=== PATIENT | female | born 1995 | race Caucasian/White ===

== ENCOUNTER 2018-04-21 12:31 | Emergency (ER) | payer MEDICAID, OTHER ==
[2018-04-21 12:53] VITALS: BP 112/75
--- NOTE | 2018-04-21 13:23 | EDM.PDOC ---
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 Her last meds. Was in February she states she took a test is positive but notes that her urine is very concentrated and is concerned she might have a bladder infection. She denies any abdominal pain, vaginal bleeding or vaginal discharge. She has had some nausea and vomiting. Review of systems: As per history of present illness and below otherwise all systems reviewed and negative. Past medical history: As per history of present illness and as reviewed below otherwise noncontributory. Surgical history: As per history of present illness and as reviewed below otherwise noncontributory. Social history: No reported history of drug or alcohol abuse. Family history: As per history of present illness and as reviewed below otherwise noncontributory. Physical exam: General: Well developed, well nourished in NAD HEENT: Atraumatic, normocephalic, pupils reactive, negative for conjunctival pallor or scleral icterus, mucous membranes moist, throat clear, neck supple, nontender, trachea midline. Lungs: Clear to auscultation, breath sounds equal bilaterally, chest nontender. Heart: S1S2, regular, negative for clicks, rubs, or JVD. Abdomen: Soft, nondistended, nontender. Negative for masses or hepatosplenomegaly. Negative for costovertebral tenderness. Pelvis: Stable nontender. Genitourinary: Deferred. Rectal: Deferred. Extremities: Atraumatic, negative for cords or calf pain. Neurovascular unremarkable. Neuro: Awake, alert, oriented. Cranial nerves II through XII unremarkable. Cerebellum unremarkable. Motor and sensory unremarkable throughout. Exam nonfocal. Diagnostics: []UA negative patient is afebrile here although she states she feels a fever, hCG positive Therapeutics: [] Impression: [] Plan: []Follow-up [facility] clinic Definitive disposition and diagnosis as appropriate pending reevaluation and review of above. - Related Data Allergies Allergy/AdvReac Type Severity Reaction Status Date / Time No Known Allergies Allergy Verified 04/21/18 12:41 Home Meds: Home Meds . 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: Psychiatric History: Reports: Anxiety, Depression Endocrine/Metabolic History: Reports: Diabetes, Gestational Social & Family History - Family History Family Medical History: Noncontributory Respiratory: Reports: Asthma Musculoskeletal: Reports: Arthritis Neurological: Reports: Alzheimers Disease Psychiatric: Reports: ADHD Endocrine/Metabolic: Reports: Diabetes, Type I, Diabetes, type II - Tobacco Use Smoking Status *Q: Never Smoker - Recreational Drug Use Recreational Drug Use: No ED ROS GENERAL - Review of Systems Review Of Systems: See Below (See history of present illness) ED EXAM - Physical Exam Exam: See Below (History of present illness) Course - Vital Signs Last Recorded V/S: Last Vital Signs Temp 97.9 F 04/21/18 12:42 Pulse 64 04/21/18 12:42 Resp 18 04/21/18 12:42 BP 112/75 04/21/18 12:42 Pulse Ox 98 04/21/18 12:42 - Orders/Labs/Meds Orders: Active Orders 24 hr Category Date Time Status HCG QUALITATIVE,URINE [URCHEM] Stat Lab 04/21/18 12:36 Ordered UA W/MICROSCOPIC [URIN] Stat Lab 04/21/18 12:36 Ordered Labs: Laboratory Tests 04/21/18 04/21/18 Range/Units 12:36 12:36 Urine Color YELLOW Urine Appearance CLEAR Urine pH 6.0 (5.0-8.0) Ur Specific [place] 1.010 (1.001-1.035) Urine Protein NEGATIVE (NEGATIVE) mg/dL Urine Glucose (UA) NEGATIVE (NEGATIVE) mg/dL Urine Ketones NEGATIVE (NEGATIVE) mg/dL Urine Occult Blood NEGATIVE (NEGATIVE) Urine Nitrite NEGATIVE (NEGATIVE) Urine Bilirubin NEGATIVE (NEGATIVE) Urine Urobilinogen 0.2 (<2.0) EU/dL Ur Leukocyte Esterase NEGATIVE (NEGATIVE) Urine RBC NONE SEEN (0-2/HPF) Urine WBC 0-1 (0-5/HPF) Ur Epithelial Cells OCCASIONAL (NONE-FEW) Urine Bacteria NOT SEEN (NEGATIVE) Urine HCG, Qual POSITIVE (NEGATIVE) Departure - Departure Time of Disposition: 13:20 Disposition: Home, Self-Care 01 Condition: Good Clinical Impression: - Discharge Information Referrals: PCP,None [Primary Care Provider] - Additional Instructions: The following information is given to patients seen in the emergency department who are being discharged to home. This information is to outline your options for follow-up care. We provide all patients seen in our emergency department with a follow-up referral. The need for follow-up, as well as the timing and circumstances, are variable depending upon the specifics of your emergency department visit. If you don't have a primary care physician on staff, we will provide you with a referral. We always advise you to contact your personal physician following an emergency department visit to inform them of the circumstance of the visit and for follow-up with them and/or the need for any referrals to a consulting specialist. The emergency department will also refer you to a specialist when appropriate. This referral assures that you have the opportunity for follow-up care with a specialist. All of these measure are taken in an effort to provide you with optimal care, which includes your follow-up. Under all circumstances we always encourage you to contact your private physician who remains a resource for coordinating your care. When calling for follow-up care, please make the office aware that this follow-up is from your recent emergency room visit. If for any reason you are refused follow-up, please contact the [facility] Emergency Department at and asked to speak to the emergency department charge nurse. [facility] Primary Care - Women's Health [address] [place] [id number] - My Orders Last 24 Hours: My Active Orders 04/21/18 12:36 HCG QUALITATIVE,URINE [URCHEM] Stat UA W/MICROSCOPIC [URIN] Stat - Assessment/Plan Last 24 Hours: My Active Orders 04/21/18 12:36 HCG QUALITATIVE,URINE [URCHEM] Stat UA W/MICROSCOPIC [URIN] Stat
== END 2018-04-21 13:25 | disposition home or self-care (01) ==
LOC: MW.ED 12:31
DX: O99.89 Other specified diseases and conditions complicating pregnancy, childbirth and the puerperium (principal); R50.9 Fever, unspecified
CPT/HCPCS: 81001; 81025; 99283

== ENCOUNTER 2018-06-18 16:49 | Emergency (ER) | payer MEDICAID ==
--- NOTE | 2018-06-18 17:20 | EDM.PDOC ---
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 The patient says she had no trauma and has not had recent sexual intercourse and has had no urinary complaints frequency urgency or hematuria and no flank pain no upper abdominal pain no vomiting fevers chills or diarrhea. She describes the pain as localized very low in the right lower abdomen/pelvis and in the groin area and she says that it shoots to her right leg. It is achy in character and seems to be worse when she stands for long periods of time and when she walks area she has not noticed any weakness in the leg or swelling of the leg. She has been eating and drinking normally today without anorexia. Is not had any fevers. She also has not had any vaginal discharge as well as no vaginal bleeding. The patient has seen Debbi Westbrook in the clinic just last week on June 11 and had a CBC and other labs as well as an ABO Rh which was O+ Review of systems: As per history of present illness and below otherwise all systems reviewed and negative. Past medical history: As per history of present illness and as reviewed below otherwise noncontributory. Surgical history: As per history of present illness and as reviewed below otherwise noncontributory. Social history: No reported history of drug or alcohol abuse. Family history: As per history of present illness and as reviewed below otherwise noncontributory. Physical exam: General: Well-developed well-nourished female who is nontoxic and moves easily in the ED without distress. Vital signs are noted by me. HEENT: Atraumatic, normocephalic, negative for conjunctival pallor or scleral icterus, mucous membranes moist, throat clear, neck supple, nontender, trachea midline. Lungs: Clear to auscultation, breath sounds equal bilaterally, chest nontender. Heart: S1S2, regular rate and rhythm no overt murmurs Abdomen: Soft, nondistended uterus is gravid with the fundus below the umbilicus consistent with her dates and the uterus itself is not tender. There is mild tenderness with palpation in the deep right lower quadrant just above the inguinal ligament and there is no tenderness extending below the inguinal ligament or in the femoral triangle. The tenderness does extend slightly to the suprapubic area and there is no rebound or guarding and there is no tenderness with obturator sign or Rovsing sign. Negative for masses or hepatosplenomegaly. Negative for costovertebral tenderness. Pelvis: Stable nontender. Genitourinary: Deferred. Rectal: Deferred. Extremities: Atraumatic, negative for cords or calf pain. Neurovascular unremarkable. Neuro: Awake, alert, oriented. Cranial nerves II through XII unremarkable. Cerebellum unremarkable. Motor and sensory unremarkable throughout. Exam nonfocal. Diagnostics: CBC CMP UA urine culture if indicated serum quantitative hCG pelvic ultrasound abdominal ultrasound limited Therapeutics: Case was discussed with Debbi Westbrook the patient's provider in the clinic. She would like to follow her in the clinic tomorrow morning and agrees with no further evaluation at this time. Patient states the pain is just crampy it is not sharp and she is hungry and wants to eat dinner. I've advised her about strict follow-up and calling the clinic at 8 AM tomorrow to be seen by Debbi in the clinic tomorrow for close follow-up. She is aware of all testing results and care plan for home Impression: Right lower pelvic pain, rule out round ligament pain Definitive disposition and diagnosis as appropriate pending reevaluation and review of above. Right Abdominal Pain Score (Numeric/FACES): 6 - Related Data Allergies Allergy/AdvReac Type Severity Reaction Status Date / Time No Known Allergies Allergy Verified 06/18/18 16:51 Home Meds: Home Meds . 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: Neurological History: Reports: None Psychiatric History: Reports: Anxiety, Depression Endocrine/Metabolic History: Reports: Diabetes, Gestational Dermatologic History: Reports: None - Infectious Disease History Infectious Disease History: Reports: None Social & Family History - Family History Family Medical History: Noncontributory Respiratory: Reports: Asthma Musculoskeletal: Reports: Arthritis Neurological: Reports: Alzheimers Disease Psychiatric: Reports: ADHD Endocrine/Metabolic: Reports: Diabetes, Type I, Diabetes, type II - Tobacco Use Smoking Status *Q: Never Smoker - Caffeine Use Caffeine Use: Reports: Coffee - Recreational Drug Use Recreational Drug Use: No ED ROS GENERAL - Review of Systems Review Of Systems: ROS reveals no pertinent complaints other than HPI. ED EXAM, GENERAL - Physical Exam Exam: See Below (See dictation) Course - Vital Signs Last Recorded V/S: Last Vital Signs Temp 36.3 C 06/18/18 16:52 Pulse 74 06/18/18 16:52 Resp 15 06/18/18 16:52 BP 100/59 L 06/18/18 16:52 Pulse Ox 98 06/18/18 16:52 - Orders/Labs/Meds Orders: Active Orders 24 hr Category Date Time Status Abdomen Ltd [US] Stat Exams 06/18/18 17:18 Ordered OB 2 Or 3 Tri Sgl 1st Gest [US] Stat Exams 06/18/18 17:14 Stop Req OB Ltd 1 or More Fetus [US] Stat Exams 06/18/18 17:18 Ordered UA W/MICROSCOPIC [URIN] Stat Lab 06/18/18 17:16 Ordered Labs: Laboratory Tests 06/18/18 06/18/18 06/18/18 Range/Units 17:16 17:24 17:24 WBC 8.21 (4.0-11.0) K/uL RBC 3.87 L (4.30-5.90) M/uL Hgb 10.3 L (12.0-16.0) g/dL Hct 31.7 L (36.0-46.0) % MCV 81.9 (80.0-98.0) fL MCH 26.6 L (27.0-32.0) pg MCHC 32.5 (31.0-37.0) g/dL RDW Std Deviation 43.6 (28.0-62.0) fl RDW Coeff of Gerardo 15 (11.0-15.0) % Plt Count 220 (150-400) K/uL MPV 10.20 (7.40-12.00) fL Neut % (Auto) 66.1 (48.0-80.0) % Lymph % (Auto) 24.2 (16.0-40.0) % [place]olls % (Auto) 8.9 (0.0-15.0) % Eos % (Auto) 0.7 (0.0-7.0) % Baso % (Auto) 0.1 (0.0-1.5) % Neut # (Auto) 5.4 (1.4-5.7) K/uL Lymph # (Auto) 2.0 (0.6-2.4) K/uL [place] # (Auto) 0.7 (0.0-0.8) K/uL Eos # (Auto) 0.1 (0.0-0.7) K/uL Baso # (Auto) 0.0 (0.0-0.1) K/uL Nucleated RBC % 0.0 /100WBC Nucleated RBCs # 0 K/uL Sodium 135 L (136-145) mmol/L Potassium 3.5 (3.5-5.1) mmol/L Chloride 103 (98-107) mmol/L Carbon Dioxide 24.5 (21.0-32.0) mmol/L BUN 10 (7.0-18.0) mg/dL Creatinine 0.4 L (0.6-1.0) mg/dL Est Cr Clr Drug Dosing 155.77 mL/min Estimated GFR (MDRD) > 60.0 ml/min Glucose 83 (74-106) mg/dL Calcium 8.7 (8.5-10.1) mg/dL Total Bilirubin 0.1 L (0.2-1.0) mg/dL AST 15 (15-37) IU/L ALT 15 (14-63) IU/L Alkaline Phosphatase 51 (46-116) U/L Total Protein 7.1 (6.4-8.2) g/dL Albumin 3.2 L (3.4-5.0) g/dL Globulin 3.9 H (2.0-3.5) g/dL Albumin/Globulin Ratio 0.8 L (1.3-2.8) HCG, Quant 05683.0 mIU/mL Urine Color YELLOW Urine Appearance CLEAR Urine pH 6.0 (5.0-8.0) Ur Specific [place] 1.010 (1.001-1.035) Urine Protein NEGATIVE (NEGATIVE) mg/dL Urine Glucose (UA) NEGATIVE (NEGATIVE) mg/dL Urine Ketones NEGATIVE (NEGATIVE) mg/dL Urine Occult Blood NEGATIVE (NEGATIVE) Urine Nitrite NEGATIVE (NEGATIVE) Urine Bilirubin NEGATIVE (NEGATIVE) Urine Urobilinogen 0.2 (<2.0) EU/dL Ur Leukocyte Esterase NEGATIVE (NEGATIVE) Urine RBC 0-1 (0-2/HPF) Urine WBC 0-1 (0-5/HPF) Ur Epithelial Cells RARE (NONE-FEW) Urine Bacteria RARE (NEGATIVE) Departure - Departure Time of Disposition: 18:29 Disposition: Home, Self-Care 01 Condition: Good Clinical Impression: Pelvic pain - Discharge Information Forms: ED Department Discharge Additional Instructions: The following information is given to patients seen in the emergency department who are being discharged to home. This information is to outline your options for follow-up care. We provide all patients seen in our emergency department with a follow-up referral. The need for follow-up, as well as the timing and circumstances, are variable depending upon the specifics of your emergency department visit. If you don't have a primary care physician on staff, we will provide you with a referral. We always advise you to contact your personal physician following an emergency department visit to inform them of the circumstance of the visit and for follow-up with them and/or the need for any referrals to a consulting specialist. The emergency department will also refer you to a specialist when appropriate. This referral assures that you have the opportunity for followup care with a specialist. All of these measure are taken in an effort to provide you with optimal care, which includes your followup. Under all circumstances we always encourage you to contact your private physician who remains a resource for coordinating your care. When calling for followup care, please make the office aware that this follow-up is from your recent emergency room visit. If for any reason you are refused follow-up, please contact the [facility] emergency department at and ask to speak to the emergency department charge nurse. [facility] Primary care-Women's Health [address]. [address] [address] Please call the clinic tomorrow at 8 AM to be seen by Debbi Westbrook tomorrow in the clinic. Strict pelvic rest and push hydration. Use [id number] Tylenol for pain as you choose. Return to ER as needed and as we discussed - My Orders Last 24 Hours: My Active Orders 06/18/18 17:14 OB 2 Or 3 Tri Sgl 1st Gest [US] Stat 06/18/18 17:16 UA W/MICROSCOPIC [URIN] Stat 06/18/18 17:18 Abdomen Ltd [US] Stat OB Ltd 1 or More Fetus [US] Stat - Assessment/Plan Last 24 Hours: My Active Orders 06/18/18 17:14 OB 2 Or 3 Tri Sgl 1st Gest [US] Stat 06/18/18 17:16 UA W/MICROSCOPIC [URIN] Stat 06/18/18 17:18 Abdomen Ltd [US] Stat OB Ltd 1 or More Fetus [US] Stat
[2018-06-18 18:14] LABS: CHLORIDE,CL 103 mmol/L (98-107); SODIUM,NA 135 mmol/L (136-145)
[2018-06-18 18:41] VITALS: BP 110/72
--- NOTE | 2018-06-18 18:41 | US ---
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 Site : 1995 Study: US OB Pelvis [id number]/22/2018 5:58:47 PM Ordering Physician: Penny Pereira Final Report: INDICATION: Pain. COMPARISON: None. FINDINGS: Single live intrauterine gestation is noted with cardiac activity at 184 beats per minute. The placenta is anterior and does not overlie the cervical os. Placental lakes are noted. The cervix measures 4.1 cm. Gestational age based on a biparietal diameter 3.5 cm, head circumference of 12.6 cm, abdominal circumference of 10.9 cm and femur length of 2.1 cm is 16 weeks 5 days for an estimated date of delivery of 11/28/2018. IMPRESSION: 1. Single live intrauterine gestation with ultrasound age of 16 weeks 5 days. 2. Placental lakes noted. Dictated by Amanda Navarro MD @ Jun 18 2018 6:05PM (Electronic Signature) Report Signed by Proxy. MILAD
--- NOTE | 2018-06-18 18:43 | US ---
EXAM DATE: 06/18/18 PATIENT'S AGE: 23 Patient: CHASE PARDO Facility: [place], [place] Site . Site : 1995 Study: US Abdomen [id number] 6:00:02 PM Ordering Physician: Penny Pereira Final Report: Indication: Pain Technique: Multiple transabdominal sonographic images of the right lower quadrant Comparison: None available Findings: The appendix is not visualized. No significant free fluid or discrete collection are seen. Impression: The appendix is not seen. Please note that sonographic nonvisualization of the appendix does not exclude appendicitis. If there is high clinical concern, further evaluation with noncontrast MRI should be considered. Dictated by Fernie Parker MD @ 06/18/2018 6:08:23 PM Dictated by: Fernie Parker MD @ 06/18/2018 18:08:27 (Electronic Signature) Report Signed by Proxy. [email or web address]
== END 2018-06-18 18:39 | disposition home or self-care (01) ==
LOC: MW.ED 16:49
DX: O99.89 Other specified diseases and conditions complicating pregnancy, childbirth and the puerperium (principal); R10.2 Pelvic and perineal pain; Z3A.16 16 weeks gestation of pregnancy
CPT/HCPCS: 36415; 76705; 76705-26; 76815; 76815-26; 80053; 81001; 84702; 85025; 99284-25

== ENCOUNTER 2018-12-08 07:28 | Inpatient (IN) | payer MEDICAID ==
[2018-12-08] MEDS ORDERED: Methylergonovine 0.2 MG/1 ML Amp IM PRN (07:58)
[2018-12-08] MEDS ORDERED: Water For Irrigation,Sterile 1,000 ML Container IRR PRN (07:58)
[2018-12-08] MEDS ORDERED: Tranexamic Acid 1,000 MG in Sodium Chloride 0.9% 100 ML IV PRN (07:58)
[2018-12-08] MEDS ORDERED: Sodium Chloride 0.9% 2.5 ML Syringe FLUSH PRN (07:58)
[2018-12-08] MEDS ORDERED: Carboprost Tromethamine 250 MCG/1 ML Amp IM PRN (07:58)
[2018-12-08] MEDS ORDERED: Sodium Chloride 0.9% 10 ML Syringe FLUSH PRN (07:58)
[2018-12-08] MEDS ORDERED: Terbutaline 1 MG/ML SDV SUBCUT PRN (07:58)
[2018-12-08] MEDS ORDERED: Misoprostol 25 MCG (1/4 of 100 MCG) Tab VAG PRN ×2 (07:58)
[2018-12-08] MEDS ORDERED: Nalbuphine 10 MG/1 ML Vial IVPUSH PRN (07:58)
[2018-12-08] MEDS ORDERED: Misoprostol 25 MCG (1/4 of 100 MCG) Tab PO PRN ×2 (07:58)
[2018-12-08] MEDS ORDERED: Lidocaine 1% 50 ML MDV INJECT PRN (07:58)
[2018-12-08] MEDS ORDERED: Misoprostol 200 MCG Tab PO PRN (07:58)
[2018-12-08] MEDS ORDERED: Oxytocin/0.9 % Sodium Chloride 30 UNIT/500 ML BAG IV SCH ×2 (08:00)
[2018-12-08] MEDS: Lactated Ringers 1,000 ML IV SCH ×3 (08:30→16:18)
--- NOTE | 2018-12-08 13:30 | PCM.LDHP ---
L&D History of Present Illness - General Date of Service: 12/08/18 Admit Problem/Dx: Patient Status Order with Admit Dx/Problem 12/08/18 07:59 Patient Status [ADT] Routine Admission Diagnosis/Problem Admission Diagnosis/Problem 12/08/18 13:25 23 yo EDC 12/05/2018 40 3/7wks, O+, RI, GBSneg, H&H 808 / 28.8. IOL post dates Source of Information: Patient History Limitations: Reports: No Limitations - History of Present Illness Improves with: Reports: None Worsens with: Reports: None Associated Symptoms: Reports: N - Related Data Allergies/Adverse Reactions: Allergies Allergy/AdvReac Type Severity Reaction Status Date / Time No Known Allergies Allergy Verified 12/08/18 07:57 Home Medications: Home Meds . [No Known Home Meds] 04/21/18 [History] Past Medical History - Past Health History Medical/Surgical History: Denies Medical/Surgical History HEENT History: Reports: Other (See Below) Other HEENT History: Pt wear eye glasses Respiratory History: Reports: None Gastrointestinal History: Reports: None Genitourinary History: Reports: None WRAPPER STEMMER HAND History: Reports: Musculoskeletal History: Reports: None Neurological History: Reports: None Psychiatric History: Reports: Anxiety, Depression Endocrine/Metabolic History: Reports: Diabetes, Gestational Other Endocrine/Metabolic History: GDM with first Hematologic History: Reports: None Immunologic History: Reports: None Oncologic (Cancer) History: Reports: None Dermatologic History: Reports: None - Infectious Disease History Infectious Disease History: Reports: None - Past Surgical History Head Surgeries/Procedures: Reports: None HEENT Surgical History: Reports: None GI Surgical History: Reports: None Female Surgical History: Reports: None Musculoskeletal Surgical History: Reports: None Social & Family History - Family History Family Medical History: Noncontributory Respiratory: Reports: Asthma Musculoskeletal: Reports: Arthritis Neurological: Reports: Alzheimers Disease Psychiatric: Reports: ADHD Endocrine/Metabolic: Reports: Diabetes, Type I, Diabetes, type II - Tobacco Use Smoking Status *Q: Former Smoker Years of Tobacco use: 8 Packs/Tins Daily: 0.5 Used Tobacco, but Quit: Yes Month/Year Tobacco Last Used: 02/2018 Second Hand Smoke Exposure: Yes - Caffeine Use Caffeine Use: Reports: Coffee - Recreational Drug Use Recreational Drug Use: No H&P Review of Systems - Review of Systems: Review Of Systems: See Below General: Reports: No Symptoms HEENT: Reports: No Symptoms Pulmonary: Reports: No Symptoms Cardiovascular: Reports: No Symptoms Gastrointestinal: Reports: No Symptoms Genitourinary: Reports: No Symptoms Musculoskeletal: Reports: No Symptoms Skin: Reports: No Symptoms Psychiatric: Reports: No Symptoms Neurological: Reports: No Symptoms Hematologic/Lymphatic: Reports: No Symptoms Immunologic: Reports: No Symptoms L&D Exam - Exam Exam: See Below - Vital Signs Weight: 77.111 kg - OB Specific Contraction Intensity: Mild Movement: Active Heart Tones: Present Heart Rate (FHR) Variability: Moderate (6-25 bmp) Presentation: Vertex - Prieto Score Prieto Score Cervix Position: Posterior Prieto Score Consistency: Soft Prieto Score Effacement: 51-70% Prieto Score Dilation: 3-4 cm Prieto Score Infant's Station: -2 Prieto Score Total: 7 - Exam General: Alert, Oriented HEENT: Hearing Intact Neck: Supple, Trachea Midline Lungs: Clear to Auscultation, Normal Respiratory Effort. No: Decreased Breath Sounds Cardiovascular: Regular Rate, Regular Rhythm, Normal S1, Normal S2. No: Irregular Rhythm Rectal Exam: Deferred Genitourinary: Normal external exam, Normal bimanual exam, Cervical dilitation Back Exam: Normal Inspection, Full Range of Motion Extremities: Normal Inspection, Normal Range of Motion, Non-Tender, No Pedal Edema, Normal Capillary Refill Skin: Warm, Dry, Intact Neurological: Cranial Nerves Intact, Reflexes Equal Bilateral, Strength Equal Bilateral, Normal Gait, Normal Speech, Normal Tone Psychiatric: Alert, Normal Affect, Normal Mood - Patient Data Lab Results Last 24 hrs: Laboratory Results - last 24 hr 12/08/18 12/08/18 Range/Units 08:22 08:22 WBC 7.50 (4.0-11.0) K/uL RBC 3.71 L (4.30-5.90) M/uL Hgb 8.8 L (12.0-16.0) g/dL Hct 28.8 L (36.0-46.0) % MCV 77.6 L (80.0-98.0) fL MCH 23.7 L (27.0-32.0) pg MCHC 30.6 L (31.0-37.0) g/dL RDW Std Deviation 55.6 (28.0-62.0) fl RDW Coeff of Gerardo 19 H (11.0-15.0) % Plt Count 197 (150-400) K/uL MPV 10.30 (7.40-12.00) fL Nucleated RBC % 0.3 /100WBC Nucleated RBCs # 0 K/uL Blood Type O POSITIVE Antibody Screen NEGATIVE Result Diagrams: 12/08/18 08:22 - Problem List (1) Supervision of normal IUP (intrauterine ) in multigravida SNOMED Code(s): 582059124, 104918285, 694586844 ICD Code: Z34.80 - ENCOUNTER FOR SUPRVSN OF NORMAL , UNSP TRIMESTER Status: Acute Priority: High Current Visit: Yes Qualifiers: Trimester: third trimester Qualified Code(s): Z34.83 - Encounter for supervision of other normal , third trimester Problem List Initiated/Reviewed/Updated: Yes Orders Last 24hrs: Active Orders 24 hr Category Date Time Status Patient Status [ADT] Routine ADT 12/08/18 07:59 Active Bedrest Bathroom Privileges [RC] ASDIRECTED Care 12/08/18 07:59 Active Communication Order [RC] ASDIRECTED Care 12/08/18 07:59 Active Communication Order [RC] ASDIRECTED Care 12/08/18 07:59 Active Communication Order [RC] ASDIRECTED Care 12/08/18 07:59 Active May Shower [RC] ASDIRECTED Care 12/08/18 07:59 Active Notify Provider [RC] PRN Care 12/08/18 07:59 Active Notify Provider [RC] PRN Care 12/08/18 07:59 Active Notify Provider [RC] PRN Care 12/08/18 07:59 Active Notify Provider [RC] STAT Care 12/08/18 07:59 Active Oxygen Therapy [RC] ASDIRECTED Care 12/08/18 07:59 Active Up ad Marii [RC] ASDIRECTED Care 12/08/18 07:59 Active Vital Signs [RC] PER UNIT ROUTINE Care 12/08/18 07:59 Active Regular Diet [DIET] Diet 12/08/18 Breakfast Active Carboprost Tromethamine [Hemabate DS] Med 12/08/18 07:58 Active 250 mcg IM ASDIRECTED PRN Lactated Ringers [Ringers, Lactated] 1,000 ml Med 12/08/18 08:00 Active IV ASDIRECTED Lidocaine 1% [Xylocaine 1%] Med 12/08/18 07:58 Active 50 ml INJECT ONETIME PRN Methylergonovine [Methergine] Med 12/08/18 07:58 Active 0.2 mg IM ASDIRECTED PRN Nalbuphine [Nubain] Med 12/08/18 07:58 Active 10 mg IVPUSH Q1H PRN Oxytocin/0.9 % Sodium Chloride [Oxytocin 30 Unit/500 ML Med 12/08/18 08:00 Active -NS] 30 unit in 500 ml IV TITRATE Oxytocin/0.9 % Sodium Chloride [Oxytocin 30 Unit/500 ML Med 12/08/18 08:00 Active -NS] 30 unit in 500 ml IV TITRATE Sodium Chloride 0.9% [Saline Flush] Med 12/08/18 07:58 Active 10 ml FLUSH ASDIRECTED PRN Sodium Chloride 0.9% [Saline Flush] Med 12/08/18 07:58 Active 2.5 ml FLUSH ASDIRECTED PRN Terbutaline [Brethine] Med 12/08/18 07:58 Active 0.25 mg SUBCUT ASDIRECTED PRN Tranexamic Acid [Cyklokapron] 1,000 mg Med 12/08/18 07:58 Active Sodium Chloride 0.9% [Normal Saline] 100 ml IV ONETIME Water For Irrigation,Sterile [Sterile Water for Med 12/08/18 07:58 Active Irrigation] 1,000 ml IRR ASDIRECTED PRN miSOPROStol [Cytotec] Med 12/08/18 07:58 Active 200 mcg PO ONETIME PRN miSOPROStol [Cytotec] Med 12/08/18 07:58 Active 25 mcg PO ONETIME PRN miSOPROStol [Cytotec] Med 12/08/18 07:58 Active 25 mcg PO Q4H PRN miSOPROStol [Cytotec] Med 12/08/18 07:58 Active 25 mcg VAG ONETIME PRN miSOPROStol [Cytotec] Med 12/08/18 07:58 Active 25 mcg VAG Q4H PRN Scalp Electrode [WOMSER] Per Unit Routine Oth 12/08/18 07:59 Ordered Medication Administration Instruction [OM.PC] Q3H Oth 12/08/18 08:00 Ordered Peripheral IV Insertion Adult [OM.PC] Routine Oth 12/08/18 07:59 Ordered Resuscitation Status Routine Resus Stat 12/08/18 07:58 Ordered Medication Orders Carboprost Tromethamine (Hemabate Ds) 250 mcg IM ASDIRECTED PRN PRN Reason: Post Hemorrhage Lactated Ringer's (Ringers, Lactated) 1,000 mls @ 150 mls/hr IV ASDIRECTED RITIKA Last Admin: 12/08/18 08:30 Dose: 150 mls/hr Oxytocin/Sodium Chloride (Oxytocin 30 Unit/500 Ml-Ns) 30 unit in 500 mls @ 2 mls/hr IV TITRATE RITIKA; Protocol Oxytocin/Sodium Chloride (Oxytocin 30 Unit/500 Ml-Ns) 30 unit in 500 mls @ 500 mls/hr IV TITRATE RITIKA Tranexamic Acid 1,000 mg/ (Sodium Chloride) 110 mls @ 660 mls/hr IV ONETIME PRN PRN Reason: Bleeding Lidocaine HCl (Xylocaine 1%) 50 ml INJECT ONETIME PRN PRN Reason: Laceration repair Methylergonovine Maleate (Methergine) 0.2 mg IM ASDIRECTED PRN PRN Reason: Post Hemorrhage Misoprostol (Cytotec) 25 mcg VAG ONETIME PRN PRN Reason: Cervical Ripening Last Admin: 12/08/18 08:53 Dose: 25 mcg Misoprostol (Cytotec) 25 mcg VAG Q4H PRN PRN Reason: Cervical Ripening Misoprostol (Cytotec) 200 mcg PO ONETIME PRN PRN Reason: Post Hemorrhage Misoprostol (Cytotec) 25 mcg PO ONETIME PRN PRN Reason: Cervical Ripening Last Admin: 12/08/18 08:54 Dose: 25 mcg Misoprostol (Cytotec) 25 mcg PO Q4H PRN PRN Reason: Cervical Ripening Nalbuphine HCl (Nubain) 10 mg IVPUSH Q1H PRN PRN Reason: Pain (severe 7-10) Sodium Chloride (Saline Flush) 10 ml FLUSH ASDIRECTED PRN PRN Reason: Keep Vein Open Sodium Chloride (Saline Flush) 2.5 ml FLUSH ASDIRECTED PRN PRN Reason: Keep Vein Open Sterile Water (Sterile Water For Irrigation) 1,000 ml IRR ASDIRECTED PRN PRN Reason: delivery Terbutaline Sulfate (Brethine) 0.25 mg SUBCUT ASDIRECTED PRN PRN Reason: Tacysystole Assessment/Plan Comment:: IOL A: 23 yo EDC 12/05/2018 40 3/7wks, O+, RI, GBSneg, H&H 808 / 28.8. IOL post dates, VE 3-4/70/-2 AROM clear P: admit, cytotec to pitocin, anticipate . Dr Adams updated
[2018-12-08] MEDS ORDERED: Ropivacaine HCl/PF 100 ML ONE (14:15)
[2018-12-08] MEDS ORDERED: Lidocaine HCl/EPINEPHrine 5 ML IJ ONE (14:33)
[2018-12-08] MEDS ORDERED: Acetaminophen 500 MG Tab PO PRN ×2 (17:53)
[2018-12-08] MEDS ORDERED: Ibuprofen 400 MG Tab PO PRN (17:53)
[2018-12-08] MEDS ORDERED: oxyCODONE 5 MG Tab PO PRN (17:53)
[2018-12-08] MEDS ORDERED: Benzocaine/Menthol 20%-0.5% Spray 78 GM Cannister TOP PRN (17:53)
[2018-12-08] MEDS ORDERED: Docusate Sodium 100 MG Cap PO PRN (17:53)
[2018-12-08] MEDS ORDERED: Lanolin 100% Cream 7 GM Tube TOP PRN (17:53)
[2018-12-08] MEDS ORDERED: Witch Hazel Medicated Pads 40/Jar TOP PRN (17:53)
[2018-12-08] MEDS ORDERED: Bisacodyl 10 MG Supp RECTAL PRN (17:53)
--- NOTE | 2018-12-08 17:59 | PCM.DEL ---
L & D Note - General Info Date of Service: 12/08/18 Mother's Due Date: 12/05/18 - Delivery Note Labor: Augmented by Oxytocin Cervical Ripening Method: Misoprostil Delivery Outcome: Livebirth Delivery Method: Spontaneous Vaginal Delivery-Single Infant Delivery Mode: Spontaneous Presentation: Vertex Nuchal Cord: Present Anesthesia Type: Epidural Amniotic Fluid Description: Clear Episiotomy Type: None Laceration: None Placenta: Intact, Spontaneous Cord: 3 Vessels Estimated Blood Loss: 200 Resuscitation Needed: No Score 1 min: 6 Score 5 min: 9 Second Stage Interventions: Reports: Pushing, Pulls Own Legs Back Delivery Comments (Free Text/Narrative):: of viable female, head delivered with good pushing, nuchal x1 reduced over head. shoulders delivered with McRobers and gentle traction. Body followed easily. Infant to mothers abd for stimulation. Spont cry. Cord clamped and cut by FOB. Cord blood collected. Placenta delivered grossly intact. Pitocin to IVF. Inspection noted intact perineum. EBL 200cc. APGARS 6/9, Wt: 9lb 9oz. Mother and baby in stable condition bonding well. Induction Criteria - Prieto Score Prieto Score Dilation: 3-4 cm Prieto Score Effacement: 60-70% Prieto Score Infant's Station: -2 Prieto Score Consistency: Medium Prieto Score Cervix Position: Posterior Prieto Score Total: 6 Prieto Score Presenting Part: Reports: Cephalic - Induction Gestational Age >/= 39 wks: Yes Reassuring Monitoring Strip: Yes Absence of Tachy Systole: Yes - General Info Date of Service: 12/08/18 Functional Status: Reports: Pain Controlled - Review of Systems General: Reports: No Symptoms HEENT: Reports: No Symptoms Pulmonary: Reports: No Symptoms Cardiovascular: Reports: No Symptoms Gastrointestinal: Reports: No Symptoms Genitourinary: Reports: No Symptoms Musculoskeletal: Reports: No Symptoms Skin: Reports: No Symptoms Neurological: Reports: No Symptoms Psychiatric: Reports: No Symptoms - Patient Data Weight - Most Recent: 77.111 kg Lab Results Last 24 Hours: Laboratory Results - last 24 hr 12/08/18 12/08/18 Range/Units 08:22 08:22 WBC 7.50 (4.0-11.0) K/uL RBC 3.71 L (4.30-5.90) M/uL Hgb 8.8 L (12.0-16.0) g/dL Hct 28.8 L (36.0-46.0) % MCV 77.6 L (80.0-98.0) fL MCH 23.7 L (27.0-32.0) pg MCHC 30.6 L (31.0-37.0) g/dL RDW Std Deviation 55.6 (28.0-62.0) fl RDW Coeff of Gerardo 19 H (11.0-15.0) % Plt Count 197 (150-400) K/uL MPV 10.30 (7.40-12.00) fL Nucleated RBC % 0.3 /100WBC Nucleated RBCs # 0 K/uL Blood Type O POSITIVE Antibody Screen NEGATIVE Med Orders - Current: Current Medications Acetaminophen (Tylenol Extra Strength) 500 mg PO Q4H PRN PRN Reason: Pain Acetaminophen (Tylenol Extra Strength) 1,000 mg PO Q4H PRN PRN Reason: Pain Benzocaine/Menthol (Dermoplast Pain Relief 20%-0.5% [place]) 78 gm TOP ASDIRECTED PRN PRN Reason: Perineal Comfort Measure Bisacodyl (Dulcolax) 10 mg RECTAL ONETIME PRN PRN Reason: Constipation Docusate Sodium (Colace) 100 mg PO BID PRN PRN Reason: Constipation Emollient Ointment (Lansinoh Hpa) 0 gm TOP ASDIRECTED PRN PRN Reason: Sore Nipples Ibuprofen (Motrin) 400 mg PO Q4H PRN PRN Reason: Pain Ibuprofen (Motrin) 800 mg PO Q6H PRN PRN Reason: Pain Oxycodone HCl (Oxycodone) 5 mg PO Q2H PRN PRN Reason: Pain Witch Lisbeth (Tucks) 1 pad TOP ASDIRECTED PRN PRN Reason: comfort care Discontinued Medications Carboprost Tromethamine (Hemabate Ds) 250 mcg IM ASDIRECTED PRN PRN Reason: Post Hemorrhage Lactated Ringer's (Ringers, Lactated) 1,000 mls @ 150 mls/hr IV ASDIRECTED RITIKA Last Admin: 12/08/18 16:18 Dose: 150 mls/hr Oxytocin/Sodium Chloride (Oxytocin 30 Unit/500 Ml-Ns) 30 unit in 500 mls @ 2 mls/hr IV TITRATE RITIKA; Protocol Last Admin: 12/08/18 15:52 Dose: 2 munits/min, 2 mls/hr Oxytocin/Sodium Chloride (Oxytocin 30 Unit/500 Ml-Ns) 30 unit in 500 mls @ 500 mls/hr IV TITRATE RITIKA Tranexamic Acid 1,000 mg/ (Sodium Chloride) 110 mls @ 660 mls/hr IV ONETIME PRN PRN Reason: Bleeding Ropivacaine (Naropin 0.2%) Confirm Administered Dose 100 mls @ as directed .ROUTE .STK-MED ONE Stop: 12/08/18 14:16 Lidocaine HCl (Xylocaine 1%) 50 ml INJECT ONETIME PRN PRN Reason: Laceration repair Lidocaine/Epinephrine (Lidocaine 1.5%-Epi 1:200,000) Confirm Administered Dose 5 ml IJ .STK-MED ONE Stop: 12/08/18 14:34 Methylergonovine Maleate (Methergine) 0.2 mg IM ASDIRECTED PRN PRN Reason: Post Hemorrhage Misoprostol (Cytotec) 25 mcg VAG ONETIME PRN PRN Reason: Cervical Ripening Last Admin: 12/08/18 08:53 Dose: 25 mcg Misoprostol (Cytotec) 25 mcg VAG Q4H PRN PRN Reason: Cervical Ripening Misoprostol (Cytotec) 200 mcg PO ONETIME PRN PRN Reason: Post Hemorrhage Misoprostol (Cytotec) 25 mcg PO ONETIME PRN PRN Reason: Cervical Ripening Last Admin: 12/08/18 08:54 Dose: 25 mcg Misoprostol (Cytotec) 25 mcg PO Q4H PRN PRN Reason: Cervical Ripening Nalbuphine HCl (Nubain) 10 mg IVPUSH Q1H PRN PRN Reason: Pain (severe 7-10) Sodium Chloride (Saline Flush) 10 ml FLUSH ASDIRECTED PRN PRN Reason: Keep Vein Open Sodium Chloride (Saline Flush) 2.5 ml FLUSH ASDIRECTED PRN PRN Reason: Keep Vein Open Sterile Water (Sterile Water For Irrigation) 1,000 ml IRR ASDIRECTED PRN PRN Reason: delivery Terbutaline Sulfate (Brethine) 0.25 mg SUBCUT ASDIRECTED PRN PRN Reason: Tacysystole - Exam General: Alert, Oriented, Cooperative, No Acute Distress Lungs: Normal Respiratory Effort GI/Abdominal Exam: Soft, Non-Tender (Female) Exam: Normal External Exam, Normal Bimanual Exam, Vaginal Bleeding Back Exam: Normal Inspection, Full Range of Motion Extremities: Normal Inspection, Normal Range of Motion, Non-Tender, No Pedal Edema, Normal Capillary Refill Skin: Warm, Dry, Intact Neurological: No New Focal Deficit, Normal Speech, Normal Tone Psy/Mental Status: Alert - Problem List & Annotations (1) Supervision of normal IUP (intrauterine ) in multigravida SNOMED Code(s): 280668497, 380500441, 311851960 Code(s): Z34.80 - ENCOUNTER FOR SUPRVSN OF NORMAL , UNSP TRIMESTER Status: Acute Priority: High Current Visit: Yes Qualifiers: Trimester: third trimester Qualified Code(s): Z34.83 - Encounter for supervision of other normal , third trimester (2) (normal spontaneous vaginal delivery) SNOMED Code(s): 30918626 Code(s): O80 - ENCOUNTER FOR FULL-TERM UNCOMPLICATED DELIVERY Status: Acute Priority: High Current Visit: Yes - Problem List Review Problem List Initiated/Reviewed/Updated: Yes - My Orders Last 24 Hours: My Active Orders 12/08/18 17:53 Patient Status [ADT] Routine May Shower [RC] ASDIRECTED Up ad Marii [RC] ASDIRECTED Vital Signs [RC] PER UNIT ROUTINE Acetaminophen [Tylenol Extra Strength] 1,000 mg PO Q4H PRN Acetaminophen [Tylenol Extra Strength] 500 mg PO Q4H PRN Benzocaine/Menthol [Dermoplast Pain Relief 20%-0.5% [place]] 78 gm TOP ASDIRECTED PRN Bisacodyl [Dulcolax] 10 mg RECTAL ONETIME PRN Docusate Sodium [Colace] 100 mg PO BID PRN Ibuprofen [Motrin] 400 mg PO Q4H PRN Ibuprofen [Motrin] 800 mg PO Q6H PRN Lanolin [Lansinoh HPA] See Dose Instructions TOP ASDIRECTED PRN Witch Lisbeth [Tucks] 1 pad TOP ASDIRECTED PRN oxyCODONE 5 mg PO Q2H PRN Assess Lochia [WOMSER] Per Unit Routine Assess Uterine Involution [WOMSER] Per Unit Routine Peripheral IV Discontinue [OM.PC] Routine Resuscitation Status Routine 12/08/18 Dinner Regular Diet [DIET] - Plan Plan:: IOL A: 23 yo EDC 12/05/2018 40 3/7wks, O+, RI, GBSneg, H&H 808 / 28.8. IOL post dates, VE 3-4/70/-2 AROM clear P: admit, cytotec to pitocin, anticipate . Dr Adams updated Delivery A: viable female. APGARS 6/9, Wt: 9lb 9oz, Intact perineum, EBL 200cc. Mother and baby stable P: Routine pp plan of care
[2018-12-08] MEDS: Ibuprofen 800 MG Tab PO PRN (20:59)
--- NOTE | 2018-12-08 21:30 | PCM.PREANE ---
Preanesthetic Assessment - Anesthesia/Transfusion/Family Hx Anesthesia History: Prior Anesthesia Without Reaction (only epidurals) Transfusion History: No Prior Transfusion(s) - Review of Systems General: No Symptoms Pulmonary: No Symptoms Cardiovascular: No Symptoms Gastrointestinal: No Symptoms Neurological: No Symptoms Other: Reports: None - Physical Assessment NPO Status Date: 12/08/18 NPO Status Time: 13:30 Height: 1.5 m Weight: 77.111 kg ASA Class: 2E Mental Status: Alert & Oriented x3 Airway Class: Mallampati = 2 Dentition: Reports: Normal Dentition Thyro-Mental Finger Breadths: 3 Mouth Opening Finger Breadths: 3 ROM/Head Extension: Full Lungs: Clear to Auscultation, Normal Respiratory Effort Cardiovascular: Regular Rate, Regular Rhythm - Lab Values: Laboratory Last Values WBC 7.50 K/uL (4.0-11.0) 12/08/18 08:22 RBC 3.71 M/uL (4.30-5.90) L 12/08/18 08:22 Hgb 8.8 g/dL (12.0-16.0) L 12/08/18 08:22 Hct 28.8 % (36.0-46.0) L 12/08/18 08:22 MCV 77.6 fL (80.0-98.0) L 12/08/18 08:22 MCH 23.7 pg (27.0-32.0) L 12/08/18 08:22 MCHC 30.6 g/dL (31.0-37.0) L 12/08/18 08:22 RDW Std Deviation 55.6 fl (28.0-62.0) 12/08/18 08:22 RDW Coeff of Gerardo 19 % (11.0-15.0) H 12/08/18 08:22 Plt Count 197 K/uL (150-400) 12/08/18 08:22 MPV 10.30 fL (7.40-12.00) 12/08/18 08:22 Nucleated RBC % 0.3 /100WBC 12/08/18 08:22 Nucleated RBCs # 0 K/uL 12/08/18 08:22 Blood Type O POSITIVE 12/08/18 08:22 Antibody Screen NEGATIVE 12/08/18 08:22 - Allergies Allergies/Adverse Reactions: Allergies Allergy/AdvReac Type Severity Reaction Status Date / Time No Known Allergies Allergy Verified 12/08/18 07:57 - Acknowledgements Anesthesia Type Planned: Epidural (risks and benefits of epidural discussed. patient consented. patient assessed prior to epidural. ) Pt an Appropriate Candidate for the Planned Anesthesia: Yes Alternatives and Risks of Anesthesia Discussed w Pt/Guardian: Yes Pt/Guardian Understands and Agrees with Anesthesia Plan: Yes PreAnesthesia Questionnaire - Past Health History Medical/Surgical History: Denies Medical/Surgical History HEENT History: Reports: Other (See Below) Other HEENT History: Pt wear eye glasses Cardiovascular History: Reports: None Respiratory History: Reports: None Gastrointestinal History: Reports: None Genitourinary History: Reports: None ALPINE GUIDE History: Reports: Musculoskeletal History: Reports: None Neurological History: Reports: None Psychiatric History: Reports: Anxiety, Depression Endocrine/Metabolic History: Reports: Diabetes, Gestational, Obesity/BMI 30+ Other Endocrine/Metabolic History: GDM with first Hematologic History: Reports: None Immunologic History: Reports: None Oncologic (Cancer) History: Reports: None Dermatologic History: Reports: None - Infectious Disease History Infectious Disease History: Reports: None - Past Surgical History Head Surgeries/Procedures: Reports: None HEENT Surgical History: Reports: None GI Surgical History: Reports: None Female Surgical History: Reports: None Musculoskeletal Surgical History: Reports: None - SUBSTANCE USE Smoking Status *Q: Former Smoker Tobacco Use Within Last Twelve Months: Cigarettes Second Hand Smoke Exposure: Yes Recreational Drug Use History: No - HOME MEDS Home Medications: Home Meds . [No Known Home Meds] 04/21/18 [History] - CURRENT (IN HOUSE) MEDS Current Meds: Current Medications Acetaminophen (Tylenol Extra Strength) 500 mg PO Q4H PRN PRN Reason: Pain Acetaminophen (Tylenol Extra Strength) 1,000 mg PO Q4H PRN PRN Reason: Pain Benzocaine/Menthol (Dermoplast Pain Relief 20%-0.5% [place]) 78 gm TOP ASDIRECTED PRN PRN Reason: Perineal Comfort Measure Bisacodyl (Dulcolax) 10 mg RECTAL ONETIME PRN PRN Reason: Constipation Docusate Sodium (Colace) 100 mg PO BID PRN PRN Reason: Constipation Emollient Ointment (Lansinoh Hpa) 0 gm TOP ASDIRECTED PRN PRN Reason: Sore Nipples Ibuprofen (Motrin) 400 mg PO Q4H PRN PRN Reason: Pain Ibuprofen (Motrin) 800 mg PO Q6H PRN PRN Reason: Pain Last Admin: 12/08/18 20:59 Dose: 800 mg Oxycodone HCl (Oxycodone) 5 mg PO Q2H PRN PRN Reason: Pain Witch Lisbeth (Tucks) 1 pad TOP ASDIRECTED PRN PRN Reason: comfort care Discontinued Medications Carboprost Tromethamine (Hemabate Ds) 250 mcg IM ASDIRECTED PRN PRN Reason: Post Hemorrhage Lactated Ringer's (Ringers, Lactated) 1,000 mls @ 150 mls/hr IV ASDIRECTED RITIKA Last Admin: 12/08/18 16:18 Dose: 150 mls/hr Oxytocin/Sodium Chloride (Oxytocin 30 Unit/500 Ml-Ns) 30 unit in 500 mls @ 2 mls/hr IV TITRATE RITIKA; Protocol Last Admin: 12/08/18 15:52 Dose: 2 munits/min, 2 mls/hr Oxytocin/Sodium Chloride (Oxytocin 30 Unit/500 Ml-Ns) 30 unit in 500 mls @ 500 mls/hr IV TITRATE RITIKA Tranexamic Acid 1,000 mg/ (Sodium Chloride) 110 mls @ 660 mls/hr IV ONETIME PRN PRN Reason: Bleeding Ropivacaine (Naropin 0.2%) Confirm Administered Dose 100 mls @ as directed .ROUTE .STK-MED ONE Stop: 12/08/18 14:16 Lidocaine HCl (Xylocaine 1%) 50 ml INJECT ONETIME PRN PRN Reason: Laceration repair Lidocaine/Epinephrine (Lidocaine 1.5%-Epi 1:200,000) Confirm Administered Dose 5 ml IJ .STK-MED ONE Stop: 12/08/18 14:34 Methylergonovine Maleate (Methergine) 0.2 mg IM ASDIRECTED PRN PRN Reason: Post Hemorrhage Misoprostol (Cytotec) 25 mcg VAG ONETIME PRN PRN Reason: Cervical Ripening Last Admin: 12/08/18 08:53 Dose: 25 mcg Misoprostol (Cytotec) 25 mcg VAG Q4H PRN PRN Reason: Cervical Ripening Misoprostol (Cytotec) 200 mcg PO ONETIME PRN PRN Reason: Post Hemorrhage Misoprostol (Cytotec) 25 mcg PO ONETIME PRN PRN Reason: Cervical Ripening Last Admin: 12/08/18 08:54 Dose: 25 mcg Misoprostol (Cytotec) 25 mcg PO Q4H PRN PRN Reason: Cervical Ripening Nalbuphine HCl (Nubain) 10 mg IVPUSH Q1H PRN PRN Reason: Pain (severe 7-10) Sodium Chloride (Saline Flush) 10 ml FLUSH ASDIRECTED PRN PRN Reason: Keep Vein Open Sodium Chloride (Saline Flush) 2.5 ml FLUSH ASDIRECTED PRN PRN Reason: Keep Vein Open Sterile Water (Sterile Water For Irrigation) 1,000 ml IRR ASDIRECTED PRN PRN Reason: delivery Terbutaline Sulfate (Brethine) 0.25 mg SUBCUT ASDIRECTED PRN PRN Reason: Tacysystole
--- NOTE | 2018-12-09 06:13 | PCM48HPAN ---
Post Anesthesia Note - EVALUATION WITHIN 48HRS OF ANESTHETIC Vital Signs in Normal Range: Yes Patient Participated in Evaluation: Yes Respiratory Function Stable: Yes Airway Patent: Yes Cardiovascular Function Stable: Yes Hydration Status Stable: Yes Pain Control Satisfactory: Yes Nausea and Vomiting Control Satisfactory: Yes Mental Status Recovered: Yes Resp Rate: 16 - COMMENTS/OBSERVATIONS Free Text/Narrative:: epidural catheter was removed with tip intact. The patient denies headache, n/v , and there were no apparent anesthetic complications at this time.
[2018-12-09] MEDS: Ibuprofen 800 MG Tab PO PRN (06:26)
--- NOTE | 2018-12-09 08:46 | PCM.DCSUM1 ---
Discharge Summary - Hospital Course Diagnosis: Stroke: No - Discharge Data Discharge Date: 12/09/18 Discharge Disposition: Home, Self-Care 01 Condition: Good - Discharge Diagnosis/Problem(s) (1) Supervision of normal IUP (intrauterine ) in multigravida SNOMED Code(s): 883058903, 991417085, [id number] ICD Code: Z34.80 - ENCOUNTER FOR SUPRVSN OF NORMAL , UNSP TRIMESTER Status: Acute Priority: High Current Visit: Yes Qualifiers: Trimester: third trimester Qualified Code(s): Z34.83 - Encounter for supervision of other normal , third trimester (2) (normal spontaneous vaginal delivery) SNOMED Code(s): 80661288 ICD Code: O80 - ENCOUNTER FOR FULL-TERM UNCOMPLICATED DELIVERY Status: Acute Priority: High Current Visit: Yes - Patient Instructions Diet: Usual Diet as Tolerated Activity: As Tolerated, No Strenuous Activities, Rest and Relax Today Driving: May Drive Today Showering/Bathing: May Shower Notify Provider of: Fever, Increased Pain, Swelling and Redness, Nausea and/or Vomiting Other/Special Instructions: Discharge home with infant. Follow up in 6 weeks for exam. - Discharge Plan *PRESCRIPTION DRUG MONITORING PROGRAM REVIEWED*: Not Applicable *COPY OF PRESCRIPTION DRUG MONITORING REPORT IN PATIENT ODIN: Not Applicable Prescriptions/Med Rec: Ibuprofen [Motrin] 800 mg PO Q6H PRN #90 tablet PRN Reason: Pain Home Medications: Home Meds Ibuprofen [Motrin] 800 mg PO Q6H PRN #90 tablet 12/09/18 [Rx] Oxygen Therapy Mode: Room Air Referrals: [facility] [Outside] Debbi Westbrook CNM [Mid-] - 01/19/19 3:00 pm - Discharge Summary/Plan Comment DC Time >30 min.: Yes - General Info Date of Service: 12/09/18 Admission Dx/Problem (Free Text: Patient Status Order with Admit Dx/Problem 12/08/18 07:59 Patient Status [ADT] Routine Admission Diagnosis/Problem Admission Diagnosis/Problem 12/08/18 13:25 23 yo EDC 12/05/2018 40 3/7wks, O+, RI, GBSneg, H&H 808 / 28.8. IOL post dates Functional Status: Reports: Pain Controlled, Tolerating Diet, Ambulating, Urinating - Review of Systems General: Reports: No Symptoms HEENT: Reports: No Symptoms Pulmonary: Reports: No Symptoms Cardiovascular: Reports: No Symptoms Gastrointestinal: Reports: No Symptoms Genitourinary: Reports: No Symptoms Musculoskeletal: Reports: No Symptoms Skin: Reports: No Symptoms Neurological: Reports: No Symptoms Psychiatric: Reports: No Symptoms - Patient Data Vitals - Most Recent: Last Vital Signs Temp 36.4 C 12/09/18 04:00 Pulse 72 12/09/18 04:00 Resp 16 12/09/18 06:13 BP 99/53 L 12/09/18 06:15 Pulse Ox 95 12/09/18 04:00 Weight - Most Recent: 77.111 kg Lab Results - Last 24 hrs: Laboratory Results - last 24 hr 12/08/18 Range/Units 08:22 Blood Type O POSITIVE Antibody Screen NEGATIVE Med Orders - Current: Current Medications Acetaminophen (Tylenol Extra Strength) 500 mg PO Q4H PRN PRN Reason: Pain Acetaminophen (Tylenol Extra Strength) 1,000 mg PO Q4H PRN PRN Reason: Pain Benzocaine/Menthol (Dermoplast Pain Relief 20%-0.5% [place]) 78 gm TOP ASDIRECTED PRN PRN Reason: Perineal Comfort Measure Bisacodyl (Dulcolax) 10 mg RECTAL ONETIME PRN PRN Reason: Constipation Docusate Sodium (Colace) 100 mg PO BID PRN PRN Reason: Constipation Emollient Ointment (Lansinoh Hpa) 0 gm TOP ASDIRECTED PRN PRN Reason: Sore Nipples Ibuprofen (Motrin) 400 mg PO Q4H PRN PRN Reason: Pain Ibuprofen (Motrin) 800 mg PO Q6H PRN PRN Reason: Pain Last Admin: 12/09/18 06:26 Dose: 800 mg Oxycodone HCl (Oxycodone) 5 mg PO Q2H PRN PRN Reason: Pain Witch Lisbeth (Tucks) 1 pad TOP ASDIRECTED PRN PRN Reason: comfort care Discontinued Medications Carboprost Tromethamine (Hemabate Ds) 250 mcg IM ASDIRECTED PRN PRN Reason: Post Hemorrhage Lactated Ringer's (Ringers, Lactated) 1,000 mls @ 150 mls/hr IV ASDIRECTED RITIKA Last Admin: 12/08/18 16:18 Dose: 150 mls/hr Oxytocin/Sodium Chloride (Oxytocin 30 Unit/500 Ml-Ns) 30 unit in 500 mls @ 2 mls/hr IV TITRATE RITIKA; Protocol Last Admin: 12/08/18 15:52 Dose: 2 munits/min, 2 mls/hr Oxytocin/Sodium Chloride (Oxytocin 30 Unit/500 Ml-Ns) 30 unit in 500 mls @ 500 mls/hr IV TITRATE RITIKA Tranexamic Acid 1,000 mg/ (Sodium Chloride) 110 mls @ 660 mls/hr IV ONETIME PRN PRN Reason: Bleeding Ropivacaine (Naropin 0.2%) Confirm Administered Dose 100 mls @ as directed .ROUTE .BlucaratK-MED ONE Stop: 12/08/18 14:16 Lidocaine HCl (Xylocaine 1%) 50 ml INJECT ONETIME PRN PRN Reason: Laceration repair Lidocaine/Epinephrine (Lidocaine 1.5%-Epi 1:200,000) Confirm Administered Dose 5 ml IJ .STK-MED ONE Stop: 12/08/18 14:34 Methylergonovine Maleate (Methergine) 0.2 mg IM ASDIRECTED PRN PRN Reason: Post Hemorrhage Misoprostol (Cytotec) 25 mcg VAG ONETIME PRN PRN Reason: Cervical Ripening Last Admin: 12/08/18 08:53 Dose: 25 mcg Misoprostol (Cytotec) 25 mcg VAG Q4H PRN PRN Reason: Cervical Ripening Misoprostol (Cytotec) 200 mcg PO ONETIME PRN PRN Reason: Post Hemorrhage Misoprostol (Cytotec) 25 mcg PO ONETIME PRN PRN Reason: Cervical Ripening Last Admin: 12/08/18 08:54 Dose: 25 mcg Misoprostol (Cytotec) 25 mcg PO Q4H PRN PRN Reason: Cervical Ripening Nalbuphine HCl (Nubain) 10 mg IVPUSH Q1H PRN PRN Reason: Pain (severe 7-10) Sodium Chloride (Saline Flush) 10 ml FLUSH ASDIRECTED PRN PRN Reason: Keep Vein Open Sodium Chloride (Saline Flush) 2.5 ml FLUSH ASDIRECTED PRN PRN Reason: Keep Vein Open Sterile Water (Sterile Water For Irrigation) 1,000 ml IRR ASDIRECTED PRN PRN Reason: delivery Terbutaline Sulfate (Brethine) 0.25 mg SUBCUT ASDIRECTED PRN PRN Reason: Tacysystole - Exam General: Reports: Alert, Oriented, Cooperative, No Acute Distress Lungs: Reports: Normal Respiratory Effort GI/Abdominal Exam: Soft, Non-Tender (Female) Exam: Deferred, Vaginal Bleeding Rectal (Female) Exam: Deferred Back Exam: Reports: Normal Inspection, Full Range of Motion Extremities: Normal Inspection, Normal Range of Motion, Non-Tender, No Pedal Edema, Normal Capillary Refill Skin: Reports: Warm, Dry, Intact Neurological: Reports: No New Focal Deficit, Normal Speech, Normal Tone, Strength Equal Bilateral Psy/Mental Status: Reports: Alert, Normal Affect, Normal Mood
[2018-12-10 04:17] VITALS: BP 100/59
--- NOTE | 2018-12-10 08:32 | PCM.DCSUM1 ---
Discharge Summary - Hospital Course Free Text/Narrative:: Discharge home, follow up in 6 weeks for . Diagnosis: Stroke: No - Discharge Data Discharge Date: 12/10/18 Discharge Disposition: Home, Self-Care 01 Condition: Good - Discharge Diagnosis/Problem(s) (1) Supervision of normal IUP (intrauterine ) in multigravida SNOMED Code(s): 965969143, 535012988, [id number] ICD Code: Z34.80 - ENCOUNTER FOR SUPRVSN OF NORMAL , UNSP TRIMESTER Status: Acute Priority: High Current Visit: Yes Qualifiers: Trimester: third trimester Qualified Code(s): Z34.83 - Encounter for supervision of other normal , third trimester (2) (normal spontaneous vaginal delivery) SNOMED Code(s): 51899767 ICD Code: O80 - ENCOUNTER FOR FULL-TERM UNCOMPLICATED DELIVERY Status: Acute Priority: High Current Visit: Yes - Patient Instructions Diet: Usual Diet as Tolerated Activity: As Tolerated, No Strenuous Activities, Rest and Relax Today Driving: May Drive Today Showering/Bathing: May Shower Notify Provider of: Fever, Increased Pain, Swelling and Redness, Nausea and/or Vomiting Other/Special Instructions: Discharge home with . Follow up in 6 weeks for exam. - Discharge Plan *PRESCRIPTION DRUG MONITORING PROGRAM REVIEWED*: Not Applicable *COPY OF PRESCRIPTION DRUG MONITORING REPORT IN PATIENT ODIN: Not Applicable Prescriptions/Med Rec: Ibuprofen [Motrin] 800 mg PO Q6H PRN #90 tablet PRN Reason: Pain Home Medications: Home Meds Ibuprofen [Motrin] 800 mg PO Q6H PRN #90 tablet 12/09/18 [Rx] Oxygen Therapy Mode: Room Air Patient Handouts: Vaginal Delivery, Care After Referrals: [facility] [Outside] Debbi Westbrook CNM [Mid-] - 01/19/19 3:00 pm - Discharge Summary/Plan Comment DC Time >30 min.: Yes - General Info Date of Service: 12/10/18 Admission Dx/Problem (Free Text: Patient Status Order with Admit Dx/Problem 12/08/18 07:59 Patient Status [ADT] Routine Admission Diagnosis/Problem Admission Diagnosis/Problem 12/08/18 13:25 23 yo EDC 12/05/2018 40 3/7wks, O+, RI, GBSneg, H&H 808 / 28.8. IOL post dates Functional Status: Reports: Pain Controlled, Tolerating Diet, Ambulating, Urinating - Review of Systems General: Reports: No Symptoms HEENT: Reports: No Symptoms Pulmonary: Reports: No Symptoms Cardiovascular: Reports: No Symptoms Gastrointestinal: Reports: No Symptoms Genitourinary: Reports: No Symptoms Musculoskeletal: Reports: No Symptoms Skin: Reports: No Symptoms Neurological: Reports: No Symptoms Psychiatric: Reports: No Symptoms - Patient Data Vitals - Most Recent: Last Vital Signs Temp 36.3 C 12/10/18 03:40 Pulse 76 12/10/18 03:40 Resp 16 12/10/18 03:40 BP 100/59 L 12/10/18 03:40 Pulse Ox 95 12/10/18 03:40 Weight - Most Recent: 77.111 kg Med Orders - Current: Current Medications Acetaminophen (Tylenol Extra Strength) 500 mg PO Q4H PRN PRN Reason: Pain Acetaminophen (Tylenol Extra Strength) 1,000 mg PO Q4H PRN PRN Reason: Pain Last Admin: 12/09/18 22:03 Dose: 1,000 mg Benzocaine/Menthol (Dermoplast Pain Relief 20%-0.5% [place]) 78 gm TOP ASDIRECTED PRN PRN Reason: Perineal Comfort Measure Last Admin: 12/09/18 20:23 Dose: 1 bottle Bisacodyl (Dulcolax) 10 mg RECTAL ONETIME PRN PRN Reason: Constipation Docusate Sodium (Colace) 100 mg PO BID PRN PRN Reason: Constipation Emollient Ointment (Lansinoh Hpa) 0 gm TOP ASDIRECTED PRN PRN Reason: Sore Nipples Ibuprofen (Motrin) 400 mg PO Q4H PRN PRN Reason: Pain Ibuprofen (Motrin) 800 mg PO Q6H PRN PRN Reason: Pain Last Admin: 12/09/18 06:26 Dose: 800 mg Oxycodone HCl (Oxycodone) 5 mg PO Q2H PRN PRN Reason: Pain Witch Lisbeth (Tucks) 1 pad TOP ASDIRECTED PRN PRN Reason: comfort care Last Admin: 12/09/18 20:23 Dose: 1 box Discontinued Medications Carboprost Tromethamine (Hemabate Ds) 250 mcg IM ASDIRECTED PRN PRN Reason: Post Hemorrhage Lactated Ringer's (Ringers, Lactated) 1,000 mls @ 150 mls/hr IV ASDIRECTED RITIKA Last Admin: 12/08/18 16:18 Dose: 150 mls/hr Oxytocin/Sodium Chloride (Oxytocin 30 Unit/500 Ml-Ns) 30 unit in 500 mls @ 2 mls/hr IV TITRATE RITIKA; Protocol Last Admin: 12/08/18 15:52 Dose: 2 munits/min, 2 mls/hr Oxytocin/Sodium Chloride (Oxytocin 30 Unit/500 Ml-Ns) 30 unit in 500 mls @ 500 mls/hr IV TITRATE RITIKA Tranexamic Acid 1,000 mg/ (Sodium Chloride) 110 mls @ 660 mls/hr IV ONETIME PRN PRN Reason: Bleeding Ropivacaine (Naropin 0.2%) Confirm Administered Dose 100 mls @ as directed .ROUTE .[place] ONE Stop: 12/08/18 14:16 Last Admin: 12/10/18 07:34 Dose: Not Given Lidocaine HCl (Xylocaine 1%) 50 ml INJECT ONETIME PRN PRN Reason: Laceration repair Lidocaine/Epinephrine (Lidocaine 1.5%-Epi 1:200,000) Confirm Administered Dose 5 ml IJ .[employer]-MED ONE Stop: 12/08/18 14:34 Last Admin: 12/10/18 07:34 Dose: Not Given Methylergonovine Maleate (Methergine) 0.2 mg IM ASDIRECTED PRN PRN Reason: Post Hemorrhage Misoprostol (Cytotec) 25 mcg VAG ONETIME PRN PRN Reason: Cervical Ripening Last Admin: 12/08/18 08:53 Dose: 25 mcg Misoprostol (Cytotec) 25 mcg VAG Q4H PRN PRN Reason: Cervical Ripening Misoprostol (Cytotec) 200 mcg PO ONETIME PRN PRN Reason: Post Hemorrhage Misoprostol (Cytotec) 25 mcg PO ONETIME PRN PRN Reason: Cervical Ripening Last Admin: 12/08/18 08:54 Dose: 25 mcg Misoprostol (Cytotec) 25 mcg PO Q4H PRN PRN Reason: Cervical Ripening Nalbuphine HCl (Nubain) 10 mg IVPUSH Q1H PRN PRN Reason: Pain (severe 7-10) Sodium Chloride (Saline Flush) 10 ml FLUSH ASDIRECTED PRN PRN Reason: Keep Vein Open Sodium Chloride (Saline Flush) 2.5 ml FLUSH ASDIRECTED PRN PRN Reason: Keep Vein Open Sterile Water (Sterile Water For Irrigation) 1,000 ml IRR ASDIRECTED PRN PRN Reason: delivery Terbutaline Sulfate (Brethine) 0.25 mg SUBCUT ASDIRECTED PRN PRN Reason: Tacysystole - Exam General: Reports: Alert, Oriented, Cooperative, No Acute Distress Lungs: Reports: Normal Respiratory Effort GI/Abdominal Exam: Soft, Non-Tender (Female) Exam: Deferred, Vaginal Bleeding Rectal (Female) Exam: Deferred Back Exam: Reports: Normal Inspection, Full Range of Motion Extremities: Normal Inspection, Normal Range of Motion, Non-Tender, No Pedal Edema, Normal Capillary Refill Skin: Reports: Warm, Dry, Intact Neurological: Reports: No New Focal Deficit, Normal Speech, Normal Tone, Strength Equal Bilateral Psy/Mental Status: Reports: Alert, Normal Affect, Normal Mood
== END 2018-12-10 11:58 | disposition home or self-care (01) | DRG 807 ==
LOC: MW.OBCHECK 07:28 → MW.OB 07:30 → MW.OBCHECK 08:07 → MW.OB 08:07 → OBSVTOIN 17:39 → MW.OB 21:00
PROVIDERS: ADMIT Obstetrics & Gynecology; ATTEND Obstetrics & Gynecology
PROC: 10907ZC Drainage of Amniotic Fluid, Therapeutic from Products of Conception, Via Natural or Artificial Opening (ICD-10-PCS; principal; 2018-12-08)
PROC: 10E0XZZ Delivery of Products of Conception, External Approach (ICD-10-PCS; principal; 2018-12-08)
PROC: 3E033VJ Introduction of Other Hormone into Peripheral Vein, Percutaneous Approach (ICD-10-PCS; principal; 2018-12-08)
PROC: 3E0P7VZ Introduction of Hormone into Female Reproductive, Via Natural or Artificial Opening (ICD-10-PCS; principal; 2018-12-08)
PROC: 6A550ZT Pheresis of Cord Blood Stem Cells, Single (ICD-10-PCS; principal; 2018-12-08)
PROC: 3E0R3BZ Introduction of Anesthetic Agent into Spinal Canal, Percutaneous Approach (ICD-10-PCS; 2018-12-08)
PROC: 00HU33Z Insertion of Infusion Device into Spinal Canal, Percutaneous Approach (ICD-10-PCS; 2018-12-08)
DX: O48.0 Post-term pregnancy (principal); Z37.0 Single live birth; O99.344 Other mental disorders complicating childbirth; Z3A.40 40 weeks gestation of pregnancy; F41.9 Anxiety disorder, unspecified; F32.9 Major depressive disorder, single episode, unspecified; O99.02 Anemia complicating childbirth; D64.9 Anemia, unspecified; O69.81X0 Labor and delivery complicated by cord around neck, without compression, not applicable or unspecified; O99.214 Obesity complicating childbirth; E66.9 Obesity, unspecified; Z87.891 Personal history of nicotine dependence
CPT/HCPCS: 36415; 51701; 51702; 59025; 59409; 85027; 86850; 86900; 86901; A9270-GY; J2590; J7120

== ENCOUNTER 2019-09-17 12:05 | Emergency (ER) | payer MEDICAID ==
[2019-09-17 12:22] VITALS: BP 121/60; PULSE 78
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
[2019-09-17 13:12] LABS: BLOOD UREA NITROGEN,BUN 9 mg/dL (7.0-18.0); CARBON DIOXIDE,CO2 23.5 mmol/L (21.0-32.0); CHLORIDE,CL 103 mmol/L (98-107); GLUCOSE RANDOM 98 mg/dL (74-106); POTASSIUM,K 3.5 mmol/L (3.5-5.1); SODIUM,NA 140 mmol/L (136-145)
== END 2019-09-17 13:57 | disposition home or self-care (01) ==
LOC: MW.ED 12:05
DX: F12.90 Cannabis use, unspecified, uncomplicated (principal); Z13.9 Encounter for screening, unspecified
CPT/HCPCS: 36415; 80053; 80305-QW; 81001; 81025; 82375; 85025; 93005; 99283-25

== ENCOUNTER 2025-03-07 19:42 | Emergency (ER) | payer SELFPAY ==
[2025-03-07 19:52] VITALS: BP 94/57; PULSE 68
[2025-03-07] MEDS: Diphtheria,Pertussis(Acell),Tetanus Vaccine 0.5 ML Syringe IM ONE (20:21)
== END 2025-03-07 20:27 | disposition home or self-care (01) ==
LOC: MW.ED 19:42
DX: S41.111A Laceration without foreign body of right upper arm, initial encounter (principal); E11.9 Type 2 diabetes mellitus without complications; Z23 Encounter for immunization; W26.0XXA Contact with knife, initial encounter
CPT/HCPCS: 12001; 90471; 90715; 99282; 99283-25